=== PATIENT | male | born 1990 | race Caucasian/White ===

== ENCOUNTER 2018-07-29 15:40 | Emergency (ER) | payer OTHER ==
--- NOTE | 2018-07-29 16:09 | EDPHY ---
H & P Stated Complaint: CP Time Seen by Provider: 07/29/18 16:09 HPI/ROS: CHIEF COMPLAINT: Sharp left-sided chest pain HISTORY OF PRESENT ILLNESS: The patient presents the ED with a 1 day history of intermittent sharp left-sided chest pain. The patient describes sharp paroxysms of pain lasting several seconds at a time occurring frequently each hour. The patient denies any pleuritic chest pain. He denies any dyspnea. He denies any asymmetric calf pain or swelling. The patient denies chest pain which is worsened with movement and palpation. He denies prior history of the symptoms. The patient has no cardiac risk factors. The patient denies history of fall or trauma. He has taken some ibuprofen with minimal improvement. REVIEW OF SYSTEMS: A comprehensive 10 point review of systems is otherwise negative aside from elements mentioned in the history of present illness. Source: Patient Exam Limitations: No limitations - Personal History Current Tetanus/Diphtheria Vaccine: Unsure Current Tetanus Diphtheria and Acellular Pertussis (TDAP): Unsure - Medical/Surgical History Hx Asthma: No Hx Chronic Respiratory Disease: No Hx Diabetes: No Hx Cardiac Disease: No Hx Renal Disease: No Hx Cirrhosis: No Hx Alcoholism: No Hx HIV/AIDS: No Hx Splenectomy or Spleen Trauma: No Other PMH: turretts, ear surgery, - Social History Smoking Status: Never smoked - Physical Exam Exam: General Appearance: Alert, no distress Eyes: Pupils equal and round no pallor or injection ENT, Mouth: Mucous membranes moist Respiratory: There are no retractions, lungs are clear to auscultation Cardiovascular: Tachycardic Gastrointestinal: Abdomen is soft and nontender, no masses, bowel sounds normal Neurological: A&O, normal motor function, normal sensory exam, normal cranial nerves Skin: Warm and dry, no rashes Musculoskeletal: Neck is supple nontender Extremities: symmetrical, full range of motion Constitutional: Initial Vital Signs Temperature (C) 36.6 C 07/29/18 15:46 Heart Rate 102 H 07/29/18 15:46 Respiratory Rate 16 07/29/18 15:46 Blood Pressure 157/91 H 07/29/18 15:46 O2 Sat (%) 94 07/29/18 15:46 O2 Delivery Mode Room Air Allergies/Adverse Reactions: No Known Allergies Allergy (Unverified 07/29/18 15:46) Home Medications: Medication Instructions Recorded Ibuprofen 07/29/18 Medical Decision Making - Diagnostics EKG Interpretation: EKG: Complete interpretation has been separately recorded in the [email or web address] archive. Summary impression: Sinus rhythm, premature atrial contraction, no ischemic changes noted Imaging Results: Imaging Impressions Chest X-Ray 07/29/18 16:10 Impression: Clear lungs. Negative portable chest. ED Course/Re-evaluation: Patient has no cardiac risk factors and presents to the ED with a 1 day history of atypical left-sided chest discomfort. Workup in the emergency department consisted of a D-dimer which I feel adequately excludes pulmonary embolism in this low risk by Wells criteria patient. Chest x-ray demonstrates no evidence of acute disease. EKG demonstrates no evidence of ischemia and troponin is normal. This point time I will recommend the patient continue to take nonsteroidal anti- inflammatories for management of his symptoms. The patient is advised to follow up with Cardiology for any ongoing mild symptoms. Patient is advised to return to the ED sooner for increased pain, difficulty breathing, fever or worsening symptoms or other concerns. Differential Diagnosis: Differential diagnosis considered emergency department includes pneumothorax, pericarditis, myocarditis, acute coronary syndrome, pneumonia, pulmonary embolism, zoster - Data Points Laboratory Results: Laboratory Results 07/29/18 17:20 07/29/18 17:05 07/29/18 07/29/18 07/29/18 17:27 17:20 17:05 WBC 8.36 10^3/uL 10^3/uL (3.80-9.50) RBC 5.70 10^6/uL 10^6/uL (4.40-6.38) Hgb 16.5 g/dL g/dL (13.7-17.5) Hct 47.4 % % (40.0-51.0) MCV 83.2 fL fL (81.5-99.8) MCH 28.9 pg pg (27.9-34.1) MCHC 34.8 g/dL g/dL (32.4-36.7) RDW 12.6 % % (11.5-15.2) Plt Count 325 10^3/uL 10^3/uL (150-400) MPV 9.0 fL fL (8.7-11.7) Neut % (Auto) 59.0 % % (39.3-74.2) Lymph % (Auto) 31.7 % % (15.0-45.0) [place] % (Auto) 7.7 % % (4.5-13.0) Eos % (Auto) 0.7 % % (0.6-7.6) Baso % (Auto) 0.5 % % (0.3-1.7) Nucleat RBC Rel Count 0.0 % % (0.0-0.2) Absolute Neuts (auto) 4.94 10^3/uL 10^3/uL (1.70-6.50) Absolute Lymphs (auto) 2.65 10^3/uL 10^3/uL (1.00-3.00) Absolute Monos (auto) 0.64 10^3/uL 10^3/uL (0.30-0.80) Absolute Eos (auto) 0.06 10^3/uL 10^3/uL (0.03-0.40) Absolute Basos (auto) 0.04 10^3/uL 10^3/uL (0.02-0.10) Absolute Nucleated RBC 0.00 10^3/uL 10^3/uL (0-0.01) Immature Gran % 0.4 % % (0.0-1.1) Immature Gran # 0.03 10^3/uL 10^3/uL (0.00-0.10) D-Dimer Sodium 137 mEq/L mEq/L (135-145) Potassium 4.5 mEq/L mEq/L (3.5-5.2) Chloride 105 mEq/L mEq/L (97-110) Carbon Dioxide 21 mEq/l L mEq/l (22-31) Anion Gap 11 mEq/L mEq/L (6-14) BUN 19 mg/dL mg/dL (7-23) Creatinine 0.9 mg/dL mg/dL (0.7-1.3) Estimated GFR > 60 Glucose 96 mg/dL mg/dL (70-100) Calcium 9.6 mg/dL mg/dL (8.5-10.4) POC Troponin I 0.00 ng/mL ng/mL (0.00-0.08) Specimen Hemolysis 134 07/29/18 17:05 WBC RBC Hgb Hct MCV MCH MCHC RDW Plt Count MPV Neut % (Auto) Lymph % (Auto) [place] % (Auto) Eos % (Auto) Baso % (Auto) Nucleat RBC Rel Count Absolute Neuts (auto) Absolute Lymphs (auto) Absolute Monos (auto) Absolute Eos (auto) Absolute Basos (auto) Absolute Nucleated RBC Immature Gran % Immature Gran # D-Dimer 0.31 ug/mLFEU ug/mLFEU (0.00-0.50) Sodium Potassium Chloride Carbon Dioxide Anion Gap BUN Creatinine Estimated GFR Glucose Calcium POC Troponin I Specimen Hemolysis Point of Care Test Results: Chemistry 07/29/18 17:27 POC Troponin I 0.00 ng/mL ng/mL (0.00-0.08) Departure - Departure Disposition: Home, Routine, Self-Care Clinical Impression: Chest pain Qualifiers: Chest pain type: other chest pain Qualified Code(s): R07.89 - Other chest pain ; R07.8 - Other chest pain Condition: Good Instructions: Chest Pain (ED) Additional Instructions: 1. The testing done in the emergency department today demonstrates no significant abnormality. 2. I do recommend beginning ibuprofen 600 mg 3 times a day. 3. Please return to the ED for markedly worsening symptoms or other concerns. 4. You can follow up with Cardiology for any ongoing mild symptoms. You have been given the contact number of our on-call card lacer jacquard Dr. Bandar Landers Referrals: Crow Landers MD [Medical Doctor] - As per Instructions
[2018-07-29 17:47] LABS: PLATELET COUNT 325 10^3/uL (150-400)
--- NOTE | 2018-07-29 17:52 | CPEKG ---
Test Reason : OPEN Blood Pressure : / mmHG Vent. Rate : 089 BPM Atrial Rate : 090 BPM P-R Int : 166 ms QRS Dur : 085 ms QT Int : 351 ms P-R-T Axes : 031 036 022 degrees QTc Int : 428 ms Sinus rhythm Atrial premature complexes Confirmed by Derrick Leija ([id number]) on 07/29/2018 5:52:10 PM Referred By: Confirmed By:Derrick Leija
[2018-07-29 17:59] VITALS: BP 142/87
== END 2018-07-29 17:58 | disposition home or self-care (01) ==
DX: R07.89 Other chest pain (principal)
CPT/HCPCS: 84484-PO